=== PATIENT | male | born 1945 | race Hispanic/Latino ===

== ENCOUNTER → 2017-11-15 | Outpatient (CLI) | payer OTHER, MEDICARE ==
[~2017-11-15] MED LIST: ALLO300T2 PO; AMLO10TA2 PO; ASPI-555 PO; ATOR40TA71 PO; CARV3.1262 PO; CLON0.2T PO; FERR325T22 PO; FOLI1TAB61 PO; GLIP5TAB97 PO; LEVO25TA54 PO; LINA5TAB PO; LOSA50TA37 PO; PIOG15TA66 PO
== END | disposition home or self-care (01) ==
LOC: OIH 10:41
PROVIDERS: ATTEND Family Medicine
DX: M47.895 Other spondylosis, thoracolumbar region (principal); I51.7 Cardiomegaly; I10 Essential (primary) hypertension; Z98.890 Other specified postprocedural states
CPT/HCPCS: 71046

== ENCOUNTER 2019-04-04 13:01 | Inpatient (IN) | payer OTHER, MEDICARE ==
[~2019-04-04] VITALS: Ht 162.6 cm; Wt 62.5 kg
[~2019-04-04 13:01] MED LIST changes: -AMLO10TA2 PO; +AMLO10TA7 PO; -LOSA50TA37 PO; +LOSA50TA64 PO
[2019-04-04 13:57] LABS: EOSINOPHILS % (AUTO) 3.7 % (0.0-8.0); HEMATOCRIT 22.1 % (42-54); LYMPHOCYTES % (AUTO) 15.3 % (21.0-51.0); MEAN CORPUSCULAR HEMOGLOBIN 28.2 pg (27.0-33.0); MEAN CORPUSCULAR HGB CONC 32.7 g/dL (32.0-36.0); MEAN CORPUSCULAR VOLUME 86.1 fL (79-99); MONOCYTES % (AUTO) 9.2 % (3.0-13.0); NEUTROPHILS % (AUTO) 70.8 % (40.0-77.0); PLATELET COUNT (AUTO) 152 K/uL (130-400); RED BLOOD CELL COUNT(AUTO) 2.56 MIL/uL (4.50-6.20); RED CELL DISTRIBUTION WIDTH 16.5 % (11.0-15.5); WHITE BLOOD COUNT (AUTO) 4.4 K/uL (4.8-10.8)
[2019-04-04 14:10] LABS: INR 1.17 (0.85-1.15); PARTIAL THROMBOPLASTIN TIME 30.5 SEC (26.3-35.5); PROTHROMBIN TIME 12.2 SEC (9.6-11.6)
[2019-04-04 14:21] LABS: ABG BASE EXCESS -3.9 mmol/L (-2.0-3.0); ABG HCO3 20.8 mmol/L (21.0-28.0); ABG OXYGEN SATURATION 92.5 % (95.0-99.0); ABG PCO2 36 mmHg (35-48)
[2019-04-04] MEDS ORDERED: DEXTROSE 50%-WATER 50 ML DISP.SYRIN IV ONE (14:31)
[2019-04-04 14:33] LABS: B-TYPE NATRIURETIC PEPTIDE 3450 pg/mL (0-100)
[2019-04-04] MEDS ORDERED: FUROSEMIDE 10 MG/ML 4ML VIAL ONE (14:35)
[2019-04-04] MEDS ORDERED: FUROSEMIDE 10 MG/ML 2ML VIAL ONE (14:35)
[2019-04-04 14:40] LABS: APPEARANCE,URINE Clear (CLEAR); BILIRUBIN,URINE Negative (NEGATIVE); COLOR,URINE Yellow (YELLOW); GLUCOSE, URINE (UA) Negative (NEGATIVE); KETONES,URINE Negative (NEGATIVE); LEUKOCYTE ESTERASE ,URINE Negative (NEGATIVE); NITRATE,URINE Negative (NEGATIVE); OCCULT BLOOD,URINE Moderate (NEGATIVE); PROTEIN,URINE 300 mg/dL (NEGATIVE)
[2019-04-04 14:53] LABS: BACTERIA,URINE Rare /HPF (None Seen); MUCUS,URINE Few LPF (None Seen); SQUAMOUS EPITHELIAL CELL,UR 0-2 /HPF (0-2); WBC,URINE 0-1 /HPF (0-1)
[2019-04-04] MEDS ORDERED: NITROGLYCERIN 1GM/1 INCH PACKET TD ONE (16:31)
[2019-04-04 16:38] LABS: CREATININE 7.4 mg/dL (0.5-1.5); POTASSIUM 4.5 mmol/L (3.5-5.1)
[2019-04-04 16:42] LABS: ALBUMIN 3.8 g/dL (3.5-5.0); BILIRUBIN,TOTAL 0.5 mg/dL (0.2-1.0)
[2019-04-04] MEDS ORDERED: METOPROLOL TARTRATE 1 MG/ML 5ML VIAL IV ONE (16:54)
[2019-04-04] MEDS ORDERED: HYOSCYAMINE SULFATE 0.125 MG TAB.SUBL SL ONE (17:00)
--- NOTE | 2019-04-04 22:50 | NUR ---
PATIENT ARRIVED TO ROOM, ORIENTATED TO CALL [place] AND BED
[2019-04-04] MEDS ORDERED: CARV25TA PO (22:58)
[2019-04-04] MEDS ORDERED: TAMS-1 PO (22:58)
[2019-04-04] MEDS ORDERED: SODI325T PO (22:58)
[2019-04-04] MEDS ORDERED: LEVO50 PO (22:58)
[2019-04-04] MEDS ORDERED: FOLI1TAB15 PO (22:58)
[2019-04-04] MEDS ORDERED: TORS20TA4 PO (22:58)
[2019-04-04 23:32] VITALS: BP 186/84
[2019-04-04] MEDS: SODIUM CHLORIDE 0.9% 1000ML 1,000 ML IV SCH (23:33)
[2019-04-05] VITALS (11 sets, daily range): BP systolic 157–174; BP diastolic 69–88
--- NOTE | 2019-04-05 02:30 | NUR ---
PATIENT VOMITED UP APPROX 25 CC EMESIS. PAGE SENT OUT TO DR. WESLEY.
[2019-04-05 03:30] LABS: HEMATOCRIT 26.3 % (42-54); MEAN CORPUSCULAR HGB CONC 33.4 g/dL (32.0-36.0); MEAN CORPUSCULAR VOLUME 86.6 fL (79-99); PLATELET COUNT (AUTO) 163 K/uL (130-400); RED BLOOD CELL COUNT(AUTO) 3.03 MIL/uL (4.50-6.20); RED CELL DISTRIBUTION WIDTH 16.1 % (11.0-15.5); WHITE BLOOD COUNT (AUTO) 8.8 K/uL (4.8-10.8)
[2019-04-05 03:43] LABS: CREATININE 7.3 mg/dL (0.5-1.5); POTASSIUM 4.2 mmol/L (3.5-5.1)
[2019-04-05 03:59] LABS: FERRITIN 354 ng/mL (30-400); IRON, SERUM 24 mcg/dL (65-175)
[2019-04-05] MEDS ORDERED: ONDANSETRON HCL 4 MG/2 ML VIAL ONE (06:25)
[2019-04-05] MEDS: ONDANSETRON HCL 4 MG/2 ML VIAL IVP PRN ×2 (06:28→16:42)
[2019-04-05] MEDS: SODIUM CHLORIDE 0.9% 1000ML 1,000 ML IV SCH (06:29)
[2019-04-05] MEDS: PANTOPRAZOLE SODIUM 40 MG TABLET.DR PO SCH (08:39)
--- NOTE | 2019-04-05 15:03 | NUR ---
SITTING UP IN BED WITH HOB AT SEMI-MABRY'S POSITION. O2 AT 2L/NC. PT. C/O SOB. RR-22/MIN. O2 SAT PER SPOT CHECK-94%, INCREASED O2 TO 3LNC. CALL LIGHT WITHIN REACH. MULTIPLE FAMILY MEMBERS AT BEDSIDE.
[2019-04-05] MEDS ORDERED: FUROSEMIDE 10 MG/ML 4ML VIAL ONE (15:13)
--- NOTE | 2019-04-05 15:15 | NUR ---
cm note met with patient and states resides at home with sister, and pt states he is able to ambulate per self and bathe self, no provider, even though has been weak lately. no HH in place. [facility] dc plan i s back to home. [facility] will speak to dr powers, because he thinks he will proceed with HD. did provide information regarding provider services. pt and sister verbalize understanding and state will followup with provider services after dc. Addendum: 04/05/19 at 1520 by CHASITY RAMIREZ CM Amended: Links added.
--- NOTE | 2019-04-05 15:27 | NUR ---
NOTIFIED DR. WESLEY RE:PT.'S C/O SOB. ORDER TO STOP IVF'S RECEIVED, FLUIDS STOPPED.
--- NOTE | 2019-04-05 15:59 | NUR ---
PAGED DR. CARUSO TO INFORM RE:PT.' C/O SOB. AWAITING RESPONSE.
--- NOTE | 2019-04-05 16:05 | NUR ---
DR. CARUSO ARRIVED, CURRENTLY IN ROOM SPEAKING WITH PT. ORDERS RECEIVED. Addendum: 04/05/19 at 1825 by LETY TRINIDAD RN RN DR. CARUSO MADE AWARE BY THIS NURSE, PT. AGREEABLE TO HD.
[2019-04-05] MEDS ORDERED: LIDOCAINE HCL 1% MDV 50ML VIAL ONE (16:44)
--- NOTE | 2019-04-05 17:13 | NUR ---
TO FIELD SECRETARY VIA BED ACCOMPANIED BY Nivia RUSSELL RN.
--- NOTE | 2019-04-05 18:10 | NUR ---
RETURNED TO ROOM VIA BED ACCOMPANIED BY Nivia RUSSELL RN. PT. WITH VM AT 35%FIO2. DENIES ANY CURRENT SOB, DENIES ANY CURRENT PAIN. RIJ CATHETER IN PLACE; DRSG IN PLACE, D/I. NO CREPITUS NOTED. CALL LIGHT WITHIN REACH, VERBALIZED ABILITY TO USE. BED LOW, SIDE RAILS UP X2. FAMILY MEMBERS ALLOWED IN ROOM WITH PT. ROOM DOOR OPEN, VISIBLE FROM NURSE'S STATION.
--- NOTE | 2019-04-05 18:26 | NUR ---
NOTIFIED JACOB HAGEN JR, STAGE ELECTRICIAN HELPER RE:ORDER FOR HD FOR PT. FOR TODAY IN PLACE; VERBALIZED UNDERSTANDING.
[2019-04-05] MEDS ORDERED: HEPARIN SODIUM 5000UNIT/ML 1ML VIAL ONE (20:00)
[2019-04-05] MEDS ORDERED: SODIUM CHLORIDE 0.9% 1000ML 2,000 ML IV ONE (20:00)
[2019-04-05 22:37] LABS: CHOLESTEROL 126 mg/dL (<200); HDL CHOLESTEROL 110 mg/dL (29-71); LDL DIRECT 54 mg/dL (0-99); TRIGLYCERIDES 91 mg/dL (30-200)
[2019-04-05 23:04] LABS: % IRON SATURATION 6.3 % (30-44)
[2019-04-06 03:36] VITALS: BP 170/71
[2019-04-06] MEDS: FUROSEMIDE 10 MG/ML 4ML VIAL IVP SCH ×2 (04:09→16:07)
[2019-04-06 04:22] LABS: BASOPHILS % (AUTO) 0.3 % (0.0-5.0); EOSINOPHILS % (AUTO) 0.1 % (0.0-8.0); HEMATOCRIT 26.3 % (42-54); LYMPHOCYTES % (AUTO) 7.2 % (21.0-51.0); MEAN CORPUSCULAR HEMOGLOBIN 29.1 pg (27.0-33.0); MEAN CORPUSCULAR HGB CONC 33.7 g/dL (32.0-36.0); MEAN CORPUSCULAR VOLUME 86.1 fL (79-99); MONOCYTES % (AUTO) 9.8 % (3.0-13.0); NEUTROPHILS % (AUTO) 82.6 % (40.0-77.0); PLATELET COUNT (AUTO) 131 K/uL (130-400); RED BLOOD CELL COUNT(AUTO) 3.05 MIL/uL (4.50-6.20); RED CELL DISTRIBUTION WIDTH 15.9 % (11.0-15.5); WHITE BLOOD COUNT (AUTO) 9.1 K/uL (4.8-10.8)
[2019-04-06 04:34] LABS: ALBUMIN 3.7 g/dL (3.5-5.0); BILIRUBIN,TOTAL 0.8 mg/dL (0.2-1.0); CREATININE 5.6 mg/dL (0.5-1.5); PHOSPHORUS 5.4 mg/dL (2.5-4.9); POTASSIUM 3.8 mmol/L (3.5-5.1); TOTAL PROTEIN, SERUM 7.3 g/dL (6.0-8.3)
[2019-04-06 07:43] VITALS: BP 186/88
[2019-04-06] MEDS: PANTOPRAZOLE SODIUM 40 MG TABLET.DR PO SCH (08:44)
--- NOTE | 2019-04-06 11:43 | NUR ---
DR. Olinda WESLEY IN ROOM SPEAKING WITH PT. AND PT.'S SPOUSE AT BEDSIDE RE:PLAN OF CARE.
[2019-04-06 11:47] VITALS: BP 184/80
--- NOTE | 2019-04-06 12:41 | NUR ---
NOTIFIED DARIANA MCRAE RN, RE:ORDER FOR HD TODAY, VERBALIZED UNDERSTANDING.
--- NOTE | 2019-04-06 16:05 | NUR ---
PT. C/O SOB. O2 SAT.-94% ON 2L/NC. PLACED ON VM AT 35% FIO2 PREVIOUSLY ORDERED. CALL LIGHT WITHIN REACH. MULTIPLE FAMILY MEMBERS AT BEDSIDE.
[2019-04-06 16:10] VITALS: BP 187/89
--- NOTE | 2019-04-06 16:12 | NUR ---
RESTING IN BED WITH HOB AT [address]. PT. STATES "BREATHING BETTER."
--- NOTE | 2019-04-06 17:00 | NUR ---
RESTING IN BED. HD IN PROGRESS. PT. DENIES ANY C/O AT PRESENT TIME.
[2019-04-06 19:25] VITALS: BP 165/88
[2019-04-06 23:20] VITALS: BP 97/57
[2019-04-07 03:43] VITALS: BP 161/81
[2019-04-07] MEDS: FUROSEMIDE 10 MG/ML 4ML VIAL IVP SCH ×2 (04:04→16:44)
[2019-04-07 04:13] LABS: ALBUMIN 3.4 g/dL (3.5-5.0); BASOPHILS % (AUTO) 0.3 % (0.0-5.0); CREATININE 4.5 mg/dL (0.5-1.5); HEMATOCRIT 27.6 % (42-54); MEAN CORPUSCULAR HEMOGLOBIN 28.6 pg (27.0-33.0); MEAN CORPUSCULAR HGB CONC 33.6 g/dL (32.0-36.0); MEAN CORPUSCULAR VOLUME 85.3 fL (79-99); MONOCYTES % (AUTO) 8.9 % (3.0-13.0); NEUTROPHILS % (AUTO) 84.8 % (40.0-77.0); PLATELET COUNT (AUTO) 122 K/uL (130-400); POTASSIUM 3.8 mmol/L (3.5-5.1); RED BLOOD CELL COUNT(AUTO) 3.24 MIL/uL (4.50-6.20); RED CELL DISTRIBUTION WIDTH 16.1 % (11.0-15.5); TOTAL PROTEIN, SERUM 7.3 g/dL (6.0-8.3); WHITE BLOOD COUNT (AUTO) 9.4 K/uL (4.8-10.8)
[2019-04-07 07:00] VITALS: BP 158/82
[2019-04-07] MEDS: PANTOPRAZOLE SODIUM 40 MG TABLET.DR PO SCH (07:57)
--- NOTE | 2019-04-07 09:44 | NUR ---
DR. Tristan ALANIS IN ROOM SPEAKING WITH PT. RE:PLAN OF CARE. QUESTIONS ANSWERED BY DR. ALANIS.
[2019-04-07] MEDS ORDERED: COMPOUND IV REFRIGERATED 1 EACH IVSOLN MISC PRN (10:30)
[2019-04-07] MEDS ORDERED: EPOETIN ALFA 10,000 UNIT/ML VIAL SQ SCH (10:30)
[2019-04-07] MEDS ORDERED: COMPOUND IV MISC 1 EACH IVSOLN MISC PRN (10:30)
[2019-04-07 11:00] VITALS: BP 148/81
[2019-04-07] MEDS: IRON SUCROSE COMPLEX 100 MG in SODIUM CHLORIDE 0.9% 50 ML IV SCH (11:06)
[2019-04-07 15:00] VITALS: BP 137/85
--- NOTE | 2019-04-07 18:00 | NUR ---
HD CATHETER DRSG WITH SANGUINEOUS DRAINAGE NOTED. DRESSING REMOVED, LIGHT MANUAL PRESSURE APPLIED MAINTAINING STERILE TECHNIQUE AND NEW DRSG APPLIED. NO FURTHER BLEEDING NOTED AT PRESENT TIME. CALL LIGHT WITHIN REACH. FAMILY MEMBERS AT BEDSIDE.
[2019-04-07 19:31] VITALS: BP 164/84
[2019-04-07 23:55] VITALS: BP 164/82
[2019-04-08] MEDS: FUROSEMIDE 10 MG/ML 4ML VIAL IVP SCH ×2 (03:58→16:00)
[2019-04-08 04:25] VITALS: BP 163/80
[2019-04-08 04:43] LABS: HEMATOCRIT 27.2 % (42-54); MEAN CORPUSCULAR HEMOGLOBIN 29.1 pg (27.0-33.0); MEAN CORPUSCULAR HGB CONC 33.8 g/dL (32.0-36.0); MEAN CORPUSCULAR VOLUME 86.1 fL (79-99); PLATELET COUNT (AUTO) 111 K/uL (130-400); RED BLOOD CELL COUNT(AUTO) 3.16 MIL/uL (4.50-6.20); RED CELL DISTRIBUTION WIDTH 15.7 % (11.0-15.5)
[2019-04-08 04:50] LABS: INR 1.04 (0.85-1.15); PARTIAL THROMBOPLASTIN TIME 30.3 SEC (26.3-35.5); PROTHROMBIN TIME 10.9 SEC (9.6-11.6)
[2019-04-08 04:56] LABS: CREATININE 5.8 mg/dL (0.5-1.5); EOSINOPHILS % (MANUAL) 1 % (1-6); LYMPHOCYTES % (MANUAL) 11 % (22-44); MAN.DIFF COMMENT-IMPRESSION MANUAL DIFFERENTIAL; MONOCYTES % (MANUAL) 12 % (2-9); PHOSPHORUS 4.7 mg/dL (2.5-4.9); POTASSIUM 3.6 mmol/L (3.5-5.1); SEGMENTED NEUTROPHILS % 76 % (40-70)
[2019-04-08 07:12] VITALS: BP 163/82
[2019-04-08] MEDS: PANTOPRAZOLE SODIUM 40 MG TABLET.DR PO SCH (09:00)
[2019-04-08] MEDS ORDERED: LIDOCAINE HCL 1% MDV 50ML VIAL ONE (09:42)
[2019-04-08 10:49] VITALS: BP 169/85
[2019-04-08] MEDS: IRON SUCROSE COMPLEX 100 MG in SODIUM CHLORIDE 0.9% 50 ML IV SCH (10:53)
[2019-04-08] MEDS ORDERED: HEPARIN SODIUM 5000UNIT/ML 1ML VIAL IJ PRN ×2 (13:45)
[2019-04-08] MEDS ORDERED: 0.9% SODIUM CHLORIDE 1000 ML IV BAG IV PRN (13:45)
[2019-04-08] MEDS ORDERED: NITROGLYCERIN 0.4 MG SL TAB SL PRN (13:45)
[2019-04-08] MEDS ORDERED: SODIUM CHLORIDE 0.9% 1000ML 1,000 ML IV PRN (13:45)
[2019-04-08 14:51] VITALS: BP 171/98
--- NOTE | 2019-04-08 17:00 | NUR ---
DC PLAN TAVO SIGNED FOR DIALYSIS. 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 INFO SENT TO [facility]. PENDING LABS. MISSING HIV LAB PRIOR TO TREATMENT. ASKED LAB TO SEE IF THEY HAVE SAMPLE FROM TO HIV LAB FROM WILL FOLLOW UP. HEP PANEL AND 3RD TREATMENT STILL PENDING. Addendum: 04/08/19 at 1702 by YANNA SANCHEZ RN CM Amended: Links added.
[2019-04-08] MEDS: BISACODYL 5 MG TABLET.DR PO SCH ×3 (18:03→23:48)
[2019-04-08] MEDS: EPOETIN ALFA 10,000 UNIT/ML VIAL SQ SCH (18:03)
[2019-04-08] MEDS ORDERED: FUROSEMIDE 10 MG/ML 4ML VIAL IVP SCH (19:15)
--- NOTE | 2019-04-08 20:00 | NUR ---
PATIENT RESTING IN BED. C/O PAIN TO [facility] SITE. TYLENOL GIVEN. VEIN MAPPING DONE ON LEFT UPPER EXTREMITY. PATIENT HAS NOT HAD A BM. DULCOLAX SCHEDULED Q 4H.
[2019-04-08 20:08] VITALS: BP 151/87
[2019-04-08] MEDS: ACETAMINOPHEN 325 MG TAB PO PRN (20:24)
--- NOTE | 2019-04-08 23:30 | NUR ---
PATIENT IN AND OUT OF A-FIB. 100-115. WILL MONITOR
[2019-04-09] VITALS (7 sets, daily range): BP systolic 146–192; BP diastolic 70–100
--- NOTE | 2019-04-09 03:05 | NUR ---
PATIENT CONVERTED TO SR
[2019-04-09 04:16] LABS: BASOPHILS % (AUTO) 0.5 % (0.0-5.0); EOSINOPHILS % (AUTO) 1.7 % (0.0-8.0); HEMATOCRIT 26.7 % (42-54); LYMPHOCYTES % (AUTO) 10.5 % (21.0-51.0); MEAN CORPUSCULAR HEMOGLOBIN 28.6 pg (27.0-33.0); MEAN CORPUSCULAR HGB CONC 33.6 g/dL (32.0-36.0); MEAN CORPUSCULAR VOLUME 85.1 fL (79-99); MONOCYTES % (AUTO) 11.2 % (3.0-13.0); NEUTROPHILS % (AUTO) 76.1 % (40.0-77.0); NUCLEATED RED BLOOD CELLS 0.1 % (0.0-0.19); PLATELET COUNT (AUTO) 134 K/uL (130-400); RED BLOOD CELL COUNT(AUTO) 3.13 MIL/uL (4.50-6.20); RED CELL DISTRIBUTION WIDTH 15.8 % (11.0-15.5); WHITE BLOOD COUNT (AUTO) 7.1 K/uL (4.8-10.8)
[2019-04-09 04:36] LABS: CREATININE 4.2 mg/dL (0.5-1.5); POTASSIUM 3.7 mmol/L (3.5-5.1)
[2019-04-09] MEDS: BISACODYL 5 MG TABLET.DR PO SCH ×3 (05:08→11:25)
[2019-04-09 07:15] LABS: HEPATITIS A ANTIBODY IGM Negative (Negative); HEPATITIS B CORE IGM Negative (Negative); HEPATITIS Bs ANTIGEN SCREEN P Negative (Negative)
[2019-04-09] MEDS: PANTOPRAZOLE SODIUM 40 MG TABLET.DR PO SCH (08:26)
[2019-04-09] MEDS: IRON SUCROSE COMPLEX 100 MG in SODIUM CHLORIDE 0.9% 50 ML IV SCH (08:28)
[2019-04-09] MEDS ORDERED: FUROSEMIDE 10 MG/ML 10ML VIAL IVP SCH (09:00)
--- NOTE | 2019-04-09 09:00 | NUR ---
DR. WESLEY IS IN TO SEE PATIENT. HOME MEDS REVIEWED BY
--- NOTE | 2019-04-09 12:50 | NUR ---
DOUG WALTERS SPOKE TO JESSICA PAGAN [facility] SAID RECEIVED AND SUBMITTING. GOT HIV AND HEP FROM LAB WILL SEND TODAY. Addendum: 04/09/19 at 1251 by YANNA SANCHEZ RN CM Amended: Links added.
[2019-04-09] MEDS: ATORVASTATIN CALCIUM 40 MG TABLET PO SCH (20:50)
[2019-04-09] MEDS: CARVEDILOL 25 MG TABLET PO SCH (20:51)
[2019-04-10 04:13] VITALS: BP 156/79
[2019-04-10 04:36] LABS: HEMATOCRIT 25.9 % (42-54); MEAN CORPUSCULAR HEMOGLOBIN 28.5 pg (27.0-33.0); MEAN CORPUSCULAR HGB CONC 33.4 g/dL (32.0-36.0); MEAN CORPUSCULAR VOLUME 85.2 fL (79-99); PLATELET COUNT (AUTO) 139 K/uL (130-400); RED BLOOD CELL COUNT(AUTO) 3.04 MIL/uL (4.50-6.20); RED CELL DISTRIBUTION WIDTH 15.9 % (11.0-15.5); WHITE BLOOD COUNT (AUTO) 7.2 K/uL (4.8-10.8)
[2019-04-10 04:44] LABS: BAND NEUTROPHILS % (MANUAL) 1 % (0-2); EOSINOPHILS % (MANUAL) 4 % (1-6); LYMPHOCYTES % (MANUAL) 11 % (22-44); MAN.DIFF COMMENT-IMPRESSION MANUAL DIFFERENTIAL; MONOCYTES % (MANUAL) 8 % (2-9); PLATELET MORPHOLOGY COMMENT ADEQUATE; SEGMENTED NEUTROPHILS % 76 % (40-70)
[2019-04-10 04:49] LABS: CREATININE 5.4 mg/dL (0.5-1.5); POTASSIUM 3.3 mmol/L (3.5-5.1)
--- NOTE | 2019-04-10 05:03 | NUR ---
PATIENT RESTING IN BED. NO C/O SOB. NO C/O PAIN. HEART IN NSR.
[2019-04-10 07:37] VITALS: BP 112/90
[2019-04-10] MEDS: CARVEDILOL 25 MG TABLET PO SCH ×2 (08:11→20:54)
[2019-04-10] MEDS: TAMSULOSIN HCL 0.4 MG CAP.ER.24H PO SCH (08:58)
[2019-04-10] MEDS: LEVOTHYROXINE 50 MCG TABLET PO SCH (08:58)
[2019-04-10] MEDS: GLIPIZIDE XL 5MG TAB PO SCH (08:58)
[2019-04-10] MEDS: PANTOPRAZOLE SODIUM 40 MG TABLET.DR PO SCH (08:58)
[2019-04-10] MEDS: LINAGLIPTIN 5 MG TABLET PO SCH (08:58)
--- NOTE | 2019-04-10 11:00 | NUR ---
DR. WESLEY IS MAKING HIS ROUNDS. MADE MD AWARE THAT PT WILL GO FOR AV FISTULA PLACEMENT TOMORROW.
[2019-04-10 11:32] VITALS: BP 151/84
[2019-04-10] MEDS ORDERED: CEFAZOLIN SODIUM 1 GM VIAL IVP PRN (14:15)
[2019-04-10 15:35] VITALS: BP 141/81
[2019-04-10] MEDS: IRON SUCROSE COMPLEX 100 MG in SODIUM CHLORIDE 0.9% 50 ML IV SCH (16:26)
--- NOTE | 2019-04-10 16:55 | NUR ---
RDSCREEN - LOS X 6 Pt Dx ESRD on HD. Pt with Hemodialysis at time of visit. Pt tolerating current diet with good PO (100%) as per EMR. No report of GI distress. Rec to modify to Dialysis Diet Order. RD to provide Dialysis diet education upon follow up. Pt LBM 04/10/19. Pt monitored labs: H/H 8.7/25.9, K 3.3, BUN 64, Cr 5.4, GFR 11, Glu 159, Alb 3.4. RD to continue to monitor. Please notify as additional nutrition concerns arise. Thank you. Addendum: 04/10/19 at [address] RD Amended: Links added.
--- NOTE | 2019-04-10 16:59 | NUR ---
RD UPDATE Pt NPO pending AV Fistula Placement as per EMR. When medically feasible, Rec to advance diet as tolerated to Dialysis Diet. RD to continue to monitor.
[2019-04-10 19:17] VITALS: BP 143/70
[2019-04-10] MEDS: ATORVASTATIN CALCIUM 40 MG TABLET PO SCH (20:54)
[2019-04-10 23:40] VITALS: BP 147/68
[2019-04-11] VITALS (19 sets, daily range): BP systolic 135–172; BP diastolic 61–82
[2019-04-11 03:44] LABS: BASOPHILS % (AUTO) 0.5 % (0.0-5.0); EOSINOPHILS % (AUTO) 6.8 % (0.0-8.0); HEMATOCRIT 28.6 % (42-54); LYMPHOCYTES % (AUTO) 17.6 % (21.0-51.0); MEAN CORPUSCULAR HEMOGLOBIN 28.4 pg (27.0-33.0); MEAN CORPUSCULAR HGB CONC 33.3 g/dL (32.0-36.0); MEAN CORPUSCULAR VOLUME 85.1 fL (79-99); MONOCYTES % (AUTO) 12.7 % (3.0-13.0); NEUTROPHILS % (AUTO) 62.4 % (40.0-77.0); PLATELET COUNT (AUTO) 159 K/uL (130-400); RED BLOOD CELL COUNT(AUTO) 3.36 MIL/uL (4.50-6.20); RED CELL DISTRIBUTION WIDTH 15.5 % (11.0-15.5); WHITE BLOOD COUNT (AUTO) 6.2 K/uL (4.8-10.8)
[2019-04-11 03:57] LABS: INR 1.1 (0.85-1.15); PARTIAL THROMBOPLASTIN TIME 29.4 SEC (26.3-35.5); PROTHROMBIN TIME 11.5 SEC (9.6-11.6)
[2019-04-11 04:05] LABS: CREATININE 4.2 mg/dL (0.5-1.5); PHOSPHORUS 3.1 mg/dL (2.5-4.9); POTASSIUM 3.5 mmol/L (3.5-5.1)
[2019-04-11] MEDS: LINAGLIPTIN 5 MG TABLET PO SCH (09:00)
[2019-04-11] MEDS: GLIPIZIDE XL 5MG TAB PO SCH (09:00)
[2019-04-11] MEDS: CARVEDILOL 25 MG TABLET PO SCH ×2 (09:50→21:07)
[2019-04-11] MEDS: TAMSULOSIN HCL 0.4 MG CAP.ER.24H PO SCH (09:50)
[2019-04-11] MEDS: PANTOPRAZOLE SODIUM 40 MG TABLET.DR PO SCH (09:50)
[2019-04-11] MEDS: IRON SUCROSE COMPLEX 100 MG in SODIUM CHLORIDE 0.9% 50 ML IV SCH (09:50)
[2019-04-11] MEDS: LEVOTHYROXINE 50 MCG TABLET PO SCH (09:50)
[2019-04-11] MEDS: EPOETIN ALFA 10,000 UNIT/ML VIAL SQ SCH (09:50)
--- NOTE | 2019-04-11 09:51 | NUR ---
diabetic meds held, as per Peter, anesthesia. Patient to have hd access insertion today
--- NOTE | 2019-04-11 11:08 | NUR ---
DOUG PLAN CALLED [facility] SAID STILL NO CHAIR PENDING CORPORATE APPROVAL. Addendum: 04/11/19 at 1109 by YANNA SANCHEZ RN CM Amended: Links added.
[2019-04-11] MEDS ORDERED: BACITRACIN 50,000 UNIT VIAL ONE (17:04)
[2019-04-11] MEDS ORDERED: MIDAZOLAM HCL 1 MG/ML 2ML VIAL ONE (17:29)
[2019-04-11] MEDS ORDERED: DEXAMETHASONE SOD PHOSPHATE 10MG/ML 1ML VIAL ONE (17:29)
[2019-04-11] MEDS ORDERED: SUCCINYLCHOLINE 200MG/10ML SYR ONE (17:29)
[2019-04-11] MEDS ORDERED: LIDOCAINE PF 2% 5ML ABBOJECT ONE (17:29)
[2019-04-11] MEDS ORDERED: ONDANSETRON HCL 4 MG/2 ML VIAL ONE (17:29)
[2019-04-11] MEDS ORDERED: PROPOFOL 10 MG/ML 20ML VIAL IV ONE (17:30)
[2019-04-11] MEDS ORDERED: NEOSTIGMINE 5MG/5ML SYR IV ONE (17:30)
[2019-04-11] MEDS ORDERED: FENTANYL CITRATE PF 50 MCG/1 ML 2ML VIAL ONE (17:30)
[2019-04-11] MEDS ORDERED: GLYCOPYRROLATE 1 MG/5 ML SYRINGE ONE (17:30)
[2019-04-11] MEDS ORDERED: ROCURONIUM 10MG/1ML SYR 10 MG/ML ML ONE (17:30)
[2019-04-11] MEDS ORDERED: EPHEDRINE SULFATE 50 MG/ML AMPULE ONE (18:20)
[2019-04-11] MEDS ORDERED: NALOXONE HCL 0.4 MG/1 ML ML ONE (19:30)
--- NOTE | 2019-04-11 19:45 | NUR ---
PT WITH DIALYSIS PORT, RT CHEST AREA. Addendum: 04/11/19 at 2014 by AN DOCKERY RN RN Amended: Links added.
[2019-04-11] MEDS ORDERED: HYDRALAZINE HCL 20 MG/ML VIAL ONE (20:11)
[2019-04-11] MEDS ORDERED: TRAMADOL HCL 50 MG TABLET PO PRN ×2 (20:15)
--- NOTE | 2019-04-11 20:45 | NUR ---
PT STABLE, DENIES PAIN. AV FISTULA WITH GOOD BRUIT AND THRILL. REPORT GIVEN KARLA. Addendum: 04/11/19 at 2045 by AN DOCKERY RN RN Amended: Links added.
[2019-04-11] MEDS: ATORVASTATIN CALCIUM 40 MG TABLET PO SCH (21:07)
[2019-04-12 03:53] VITALS: BP 141/64
[2019-04-12 03:57] LABS: HEMATOCRIT 27.9 % (42-54); MEAN CORPUSCULAR HEMOGLOBIN 28.6 pg (27.0-33.0); MEAN CORPUSCULAR HGB CONC 32.8 g/dL (32.0-36.0); MEAN CORPUSCULAR VOLUME 87.3 fL (79-99); PLATELET COUNT (AUTO) 190 K/uL (130-400); RED CELL DISTRIBUTION WIDTH 15.7 % (11.0-15.5); WHITE BLOOD COUNT (AUTO) 6.7 K/uL (4.8-10.8)
[2019-04-12 04:22] LABS: CREATININE 5.5 mg/dL (0.5-1.5); POTASSIUM 4.2 mmol/L (3.5-5.1)
[2019-04-12 07:13] VITALS: BP 150/67
[2019-04-12 11:08] VITALS: BP 117/57
[2019-04-12] MEDS: GLIPIZIDE XL 5MG TAB PO SCH (12:07)
[2019-04-12] MEDS: LEVOTHYROXINE 50 MCG TABLET PO SCH (12:08)
[2019-04-12] MEDS: PANTOPRAZOLE SODIUM 40 MG TABLET.DR PO SCH (12:08)
[2019-04-12] MEDS: CARVEDILOL 25 MG TABLET PO SCH ×2 (12:09→21:11)
[2019-04-12] MEDS: IRON SUCROSE COMPLEX 100 MG in SODIUM CHLORIDE 0.9% 50 ML IV SCH (12:10)
[2019-04-12] MEDS: LINAGLIPTIN 5 MG TABLET PO SCH (12:10)
[2019-04-12] MEDS: TAMSULOSIN HCL 0.4 MG CAP.ER.24H PO SCH (12:21)
--- NOTE | 2019-04-12 12:35 | NUR ---
RD NOTIFICATION/ FOLLOW UP DX: ACUTE ON CHRONIC RENAL FAILURE, ANEMIA. DIET: CLEAR LIQUIDS. PO 100% AND HAS GOOD APPETITE PER PT. LBM: 04/11. SKIN INTACT, NO EDEMA. PT TOLERATING CLEAR LIQUIDS. NO NAUSEA, VOMITING OR DIARRHEA BU-MYPM-VWOS. RD PROVIDED RENAL DIALYSIS NUTRITION AND DIET EDUCATION. PT CLAIMS TO COOKS FOR HIMSELF, SISTER OR NIECE COOKS FOR HIM. HIS NIECE WILL BE TAKING CARE OF HIM ONCE D/C. PT IS COMPLIANT WITH DIABETES MEDICATION AND DIET PER PT, HE HAS BEEN ABLE TO CONTROL BG LEVELS, A1C 6. RD RECOMMENDS TO CONTINUE CURRENT DIET, ADVANCE DIET TOLERATED WHEN MEDICALLY FEASIBLE TO FULL LIQUIDS. LASTLY, ADVANCE TO RENAL DIALYSIS, 75GMCCD. RD PROVIDED RENAL DIALYSIS DIET EDUCATION. PT VERBALIZED UNDERSTANDING AND ASKED A LOT OF QUESTIONS. RD ENCOURAGED PT TO REACH OUT IF HIM OR HIS NIECE HAD ANY OTHER QUESTIONS, COMMENTS OR CONCERNS. FAMILY NOT PRESENT DURING TIME OF EDUCATION. RD WILL CONTINUE TO MONITOR AND FOLLOW UP NEEDED. THANK YOU. Addendum: 04/12/19 at [address] Amended: Links added.
--- NOTE | 2019-04-12 12:36 | NUR ---
DIET EDUCATION ANGY PROVIDED RENAL DIALYSIS DIET EDUCATION. PT VERBALIZED UNDERSTANDING AND ASKED A LOT OF QUESTIONS. RD ENCOURAGED PT TO REACH OUT IF HIM OR HIS NIECE HAD ANY OTHER QUESTIONS, COMMENTS OR CONCERNS. FAMILY NOT PRESENT DURING TIME OF EDUCATION. Addendum: 04/12/19 at [address] Amended: Links added.
[2019-04-12 14:55] VITALS: BP 123/61
--- NOTE | 2019-04-12 17:59 | NUR ---
DOUG PLAN CALLED [facility] AGA[facility] TODAY MULTIPLE TIMES STILL NO CHAIR. SAID THEY WILL GET WITH CORPORATE TO SEE WHAT HAPPENED. PARTLY IS THE PERSON THAT DOES REFERRALS IS OUT SICK. Addendum: 04/12/19 at 1800 by YANNA SANCHEZ RN CM Amended: Links added.
[2019-04-12 20:07] VITALS: BP 126/54
[2019-04-12] MEDS ORDERED: APIXABAN 5 MG TABLET PO SCH (21:00)
[2019-04-12] MEDS: ATORVASTATIN CALCIUM 40 MG TABLET PO SCH (21:11)
[2019-04-12 23:57] VITALS: BP 146/58
[2019-04-13] MEDS: ACETAMINOPHEN 325 MG TAB PO PRN (01:56)
[2019-04-13 04:16] VITALS: BP 150/62
[2019-04-13 07:16] VITALS: BP 145/61
[2019-04-13] MEDS: LEVOTHYROXINE 50 MCG TABLET PO SCH (07:20)
[2019-04-13] MEDS: IRON SUCROSE COMPLEX 100 MG in SODIUM CHLORIDE 0.9% 50 ML IV SCH (07:21)
[2019-04-13] MEDS: CARVEDILOL 25 MG TABLET PO SCH ×2 (07:21→20:31)
[2019-04-13] MEDS: TAMSULOSIN HCL 0.4 MG CAP.ER.24H PO SCH (07:21)
[2019-04-13] MEDS: LINAGLIPTIN 5 MG TABLET PO SCH (07:21)
[2019-04-13] MEDS: PANTOPRAZOLE SODIUM 40 MG TABLET.DR PO SCH (07:21)
[2019-04-13] MEDS: GLIPIZIDE XL 5MG TAB PO SCH (07:21)
--- NOTE | 2019-04-13 08:00 | NUR ---
ASSESSMENT PT IS AAOX4 DENIES CP DENIES SOB DENIES NV NO COMPLAINTS AT THIS TIME. AM MEDS GIVEN, TOLERATED WELL. LEFT ARM AV SURGICAL SITE CLEAN DRY AND INTACT. + THRILL + BRUIT. FAMILY IS AT BEDSIDE, CALL LIGHT WITHIN REACH.
--- NOTE | 2019-04-13 10:45 | NUR ---
DR Anderson ALANIS ROUNDED STATES PT IS STILL PENDING CHAIR AT [facility].
[2019-04-13 11:17] VITALS: BP 138/50
[2019-04-13 14:56] VITALS: BP 138/54
--- NOTE | 2019-04-13 17:15 | NUR ---
STATUS AMBULATING IN HALLS, NO COMPLAINTS. BACK TO ROOM. FAMILY AT BEDSIDE.
--- NOTE | 2019-04-13 19:00 | NUR ---
PUSCA ROUNDED ON PATIENT.NO NEW ORDERS.
[2019-04-13 20:27] VITALS: BP 154/69
[2019-04-13] MEDS: ATORVASTATIN CALCIUM 40 MG TABLET PO SCH (20:30)
[2019-04-13] MEDS: BISACODYL 5 MG TABLET.DR PO PRN (20:41)
[2019-04-13 23:56] VITALS: BP 149/66
[2019-04-14] MEDS: ACETAMINOPHEN 325 MG TAB PO PRN (01:02)
--- NOTE | 2019-04-14 03:00 | NUR ---
PATIENT RESTING IN BED. C/O NERVE PAIN TWO NIGHTS IN A ROW. TYLENOL GIVEN WITH RELIEF. WILL TALK TO DR ABOUT NEUROPATHY PAIN. L ARM HD ACCESS WITH THRILL. AMBULATES INDEPENDENTLY. STEADY GAIT
[2019-04-14 04:01] VITALS: BP 155/65
[2019-04-14 07:09] VITALS: BP 151/66
[2019-04-14] MEDS: LINAGLIPTIN 5 MG TABLET PO SCH (07:39)
[2019-04-14] MEDS: PANTOPRAZOLE SODIUM 40 MG TABLET.DR PO SCH (07:39)
[2019-04-14] MEDS: TAMSULOSIN HCL 0.4 MG CAP.ER.24H PO SCH (07:40)
[2019-04-14] MEDS: LEVOTHYROXINE 50 MCG TABLET PO SCH (07:40)
[2019-04-14] MEDS: GLIPIZIDE XL 5MG TAB PO SCH (07:40)
[2019-04-14] MEDS: CARVEDILOL 25 MG TABLET PO SCH ×2 (07:40→20:10)
[2019-04-14] MEDS: IRON SUCROSE COMPLEX 100 MG in SODIUM CHLORIDE 0.9% 50 ML IV SCH (07:40)
[2019-04-14] MEDS: BISACODYL 5 MG TABLET.DR PO PRN (07:46)
--- NOTE | 2019-04-14 08:40 | NUR ---
ASSESSMENT PT IS AAOX4 DENIES CP DENIES SOB DENIES NV NO COMPLAINTS. SITTING UP IN BED, CALL LIGHT WITHIN REACH.
[2019-04-14 11:05] VITALS: BP 131/55
--- NOTE | 2019-04-14 12:45 | NUR ---
DR Lorrie ALANIS ROUNDED /LYRICA ORDER PATIENT STATES HE DOESN'T WANT THE LYRICA NOW, HIS LEGS FEEL FINE. WILL RETURN UNOPENED LYRICA CAPS.
[2019-04-14] MEDS ORDERED: PREGABALIN 25 MG CAP PO ONE (13:30)
[2019-04-14 15:01] VITALS: BP 136/62
--- NOTE | 2019-04-14 18:20 | NUR ---
STATUS SITTING UPRIGHT IN BED. NO COMPLAINTS, DENIES PAIN. CALL LIGHT WITHIN REACH.
[2019-04-14] MEDS ORDERED: PREGABALIN 25 MG CAP ONE ×2 (19:53→22:25)
[2019-04-14] MEDS: ATORVASTATIN CALCIUM 40 MG TABLET PO SCH (20:10)
[2019-04-14 20:54] VITALS: BP 110/60
[2019-04-15 00:04] VITALS: BP 156/68
--- NOTE | 2019-04-15 01:30 | NUR ---
PATIENT RESTING IN BED. THRILL PRESENT TO KRISTA. NO C/O SOB. PATIENT DID C/O OF RLE NERVE PAIN. 3/3 NIGHTS. LYRICA GIVEN WITH NIGHT MEDS AND TYLENOL GIVEN NOW. WILL CONTINUE TO MONITOR.
[2019-04-15] MEDS: ACETAMINOPHEN 325 MG TAB PO PRN (01:43)
[2019-04-15 04:09] VITALS: BP 150/70
[2019-04-15 07:00] VITALS: BP_SYST 114; BP_SYST 158; BP_DIAS 66; BP_DIAS 69
--- NOTE | 2019-04-15 07:45 | NUR ---
ASSESSMENT PT A&OX3, CALM COOPERATIVE AND DOES NOT APPEAR TO BE IN ANY DISTRESS NOR ANY NEURO DEFICITS PRESENT. PT DENIES PAIN, SOB, NAUSEA. LAVA WITH BRUIT/THRILL PRESENT, PERMACATH TO RSC, SITE DRY AND INTACT. PT RESTING COMFORTABLY, PENDING HEMODIALYSIS, CALL LIGHT WITHIN REACH, FAMILY AT BEDSIDE.
[2019-04-15] MEDS: TAMSULOSIN HCL 0.4 MG CAP.ER.24H PO SCH (08:00)
[2019-04-15] MEDS: LEVOTHYROXINE 50 MCG TABLET PO SCH (09:00)
[2019-04-15] MEDS: GLIPIZIDE XL 5MG TAB PO SCH (09:00)
[2019-04-15] MEDS: LINAGLIPTIN 5 MG TABLET PO SCH (09:00)
[2019-04-15] MEDS: PANTOPRAZOLE SODIUM 40 MG TABLET.DR PO SCH (09:00)
[2019-04-15] MEDS: IRON SUCROSE COMPLEX 100 MG in SODIUM CHLORIDE 0.9% 50 ML IV SCH (09:00)
[2019-04-15] MEDS: CARVEDILOL 25 MG TABLET PO SCH (09:00)
--- NOTE | 2019-04-15 10:13 | NUR ---
DOUG WALTERS SPOKE TO JOZEF THIS MORNING. APOLOGIZED SAID THERE HAD BEEN AN ERROR ON THEIR PART. PERSON THAT DOES IT NORMALLY WAS OUT SICK. INFO GOT MISPLACED. THEY ARE WORKING ON IT SHOULD KNOW SOMETHING BY 1200 TODAY. Addendum: 04/15/19 at 1014 by YANNA SANCHEZ RN CM Amended: Links added.
[2019-04-15 11:00] VITALS: BP 148/73
--- NOTE | 2019-04-15 13:41 | NUR ---
DOUG PLAN [facility] CALLED BACK SAID PATIENT APPROVED. CHAIR IS TTS 230 PM LET NURSE KNOW. Addendum: 04/15/19 at 1342 by YANNA SANCHEZ RN CM Amended: Links added.
[2019-04-15 15:00] VITALS: BP 155/73
--- NOTE | 2019-04-15 16:00 | NUR ---
DISCHARGE INSTRUCTIONS GIVEN, PIV REMOVED AND INTACT, DISCHARGED HOME TO FAMILY VEHICLE VIA WHEELCHAIR.
== END 2019-04-15 16:26 | disposition home or self-care (01) | DRG 673 ==
LOC: EDH 13:01 → OBSVTOIN 16:31 → EDHIP 16:31 → 2AH 22:32
PROVIDERS: ADMIT Family Medicine; ATTEND Family Medicine
PROC: 30233N1 Transfusion of Nonautologous Red Blood Cells into Peripheral Vein, Percutaneous Approach (ICD-10-PCS; 2019-04-04)
PROC: 5A1D70Z Performance of Urinary Filtration, Intermittent, Less than 6 Hours Per Day (ICD-10-PCS; 2019-04-05)
PROC: 02HV33Z Insertion of Infusion Device into Superior Vena Cava, Percutaneous Approach (ICD-10-PCS; 2019-04-05)
PROC: 0JH63XZ Insertion of Tunneled Vascular Access Device into Chest Subcutaneous Tissue and Fascia, Percutaneous Approach (ICD-10-PCS; principal; 2019-04-08)
PROC: 02H633Z Insertion of Infusion Device into Right Atrium, Percutaneous Approach (ICD-10-PCS; 2019-04-08)
PROC: 5A1D70Z Performance of Urinary Filtration, Intermittent, Less than 6 Hours Per Day (ICD-10-PCS; 2019-04-08)
PROC: 5A1D70Z Performance of Urinary Filtration, Intermittent, Less than 6 Hours Per Day (ICD-10-PCS; 2019-04-09)
PROC: 5A1D70Z Performance of Urinary Filtration, Intermittent, Less than 6 Hours Per Day (ICD-10-PCS; 2019-04-10)
PROC: 03180ZD Bypass Left Brachial Artery to Upper Arm Vein, Open Approach (ICD-10-PCS; 2019-04-11)
PROC: 5A1D70Z Performance of Urinary Filtration, Intermittent, Less than 6 Hours Per Day (ICD-10-PCS; 2019-04-12)
PROC: 5A1D70Z Performance of Urinary Filtration, Intermittent, Less than 6 Hours Per Day (ICD-10-PCS; 2019-04-15)
DX: N17.9 Acute kidney failure, unspecified (principal); I50.43 Acute on chronic combined systolic (congestive) and diastolic (congestive) heart failure; I13.2 Hypertensive heart and chronic kidney disease with heart failure and with stage 5 chronic kidney disease, or end stage renal disease; E87.2 Acidosis; N18.6 End stage renal disease; D64.9 Anemia, unspecified; E11.22 Type 2 diabetes mellitus with diabetic chronic kidney disease; E11.51 Type 2 diabetes mellitus with diabetic peripheral angiopathy without gangrene; E78.5 Hyperlipidemia, unspecified; E11.40 Type 2 diabetes mellitus with diabetic neuropathy, unspecified; K21.9 Gastro-esophageal reflux disease without esophagitis; I25.10 Atherosclerotic heart disease of native coronary artery without angina pectoris; Z99.2 Dependence on renal dialysis; Z83.3 Family history of diabetes mellitus; Z95.1 Presence of aortocoronary bypass graft
CPT/HCPCS: 36415; 36430; 36556; 36581; 36600; 71045; 77001; 80048; 80053; 80061; 80074; 81001; 82435; 82550; 82728; 82803; 82947; 82948; 83036; 83540; 83550; 83605; 83880; 84100; 84132; 84295; 84484; 85018; 85025; 85027; 85610; 85730; 86701; 86850; 86900; 86901; 86922; 87390; 90935; 93005; 93306; 93971; 99291; C1750; C1752; G0378; J0330; J0360; J0690; J0885; J1100; J1644; J1756; J1940; J2001; J2250; J2310; J2405; J2704; J2710; J3010; J3490; J7030; J7040; J7070; P9016

== ENCOUNTER 2021-01-02 08:59 | Observation (INO) | payer OTHER, MEDICARE ==
[~2021-01-02 08:59] MED LIST changes: -ALLO300T2 PO; +AMLO-258 PO; -AMLO10TA7 PO; -ASPI-555 PO; +ASPI-556 PO; +CARV25TA PO; -CARV3.1262 PO; +FOLI1TAB15 PO; -FOLI1TAB61 PO; -LEVO25TA54 PO; +LEVO50 PO; -PIOG15TA66 PO; +SODI325T PO; +TAMS-1 PO
[2021-01-02 09:10] VITALS: BP 169/81
[2021-01-02] MEDS ORDERED: METOPROLOL TARTRATE 1 MG/ML 5ML VIAL IV SCH (09:15)
[2021-01-02] MEDS ORDERED: MORPHINE 4 MG SYG IVP SCH (09:15)
[2021-01-02] MEDS ORDERED: PANT40TA54 PO (09:25)
[2021-01-02] MEDS ORDERED: FOLI0.8T22 PO (09:25)
[2021-01-02] MEDS ORDERED: EMLA30C TP (09:25)
[2021-01-02] MEDS ORDERED: ROPI0.2527 PO (09:25)
[2021-01-02] MEDS ORDERED: SEVE800T7 PO (09:25)
[2021-01-02 09:26] LABS: BASOPHILS % (AUTO) 0.4 % (0.0-5.0); EOSINOPHILS % (AUTO) 1.9 % (0.0-8.0); HEMATOCRIT 37.8 % (42-54); LYMPHOCYTES % (AUTO) 23.3 % (21.0-51.0); MEAN CORPUSCULAR HEMOGLOBIN 29.3 pg (27.0-33.0); MEAN CORPUSCULAR HGB CONC 31.7 g/dL (32.0-36.0); MEAN CORPUSCULAR VOLUME 92.4 fL (79-99); MONOCYTES % (AUTO) 8.6 % (3.0-13.0); NEUTROPHILS % (AUTO) 65.4 % (40.0-77.0); PLATELET COUNT (AUTO) 175 K/uL (130-400); RED BLOOD CELL COUNT(AUTO) 4.09 MIL/uL (4.50-6.20); RED CELL DISTRIBUTION WIDTH 13.6 % (11.0-15.5); WHITE BLOOD COUNT (AUTO) 6.9 K/uL (4.8-10.8)
[2021-01-02 09:37] LABS: CARBON DIOXIDE 31 mmol/L (21-32); CHLORIDE 96 mmol/L (101-111); CREATININE 4.6 mg/dL (0.5-1.5); GLOMERULAR FILTR. RATE CALC 13 mL/min (>60); GLUCOSE,RANDOM 123 mg/dL (70-105); SODIUM SERUM 136 mmol/L (136-145); UREA NITROGEN, BLOOD 20 mg/dL (7-18)
[2021-01-02 09:38] LABS: INR 1.05 (0.85-1.15); PROTHROMBIN TIME 11.4 SEC (9.6-11.6)
[2021-01-02 10:10] LABS: ALANINE AMINOTRANSFERASE 19 U/L (12-78); ALBUMIN 4.3 g/dL (3.5-5.0); ASPARTATE AMINOTRANSFERASE 14 U/L (10-37); BILIRUBIN,TOTAL 0.8 mg/dL (0.2-1.0); CREATINE KINASE, TOTAL 199 U/L (21-232); MYOGLOBIN 620 ng/mL (10-92); TOTAL PROTEIN, SERUM 8.3 g/dL (6.0-8.3); TROPONIN I < 0.04 ng/mL (0.00-0.06)
[2021-01-02 11:00] VITALS: BP 165/85
[2021-01-02] MEDS ORDERED: ACETAMINOPHEN 650 MG SUPPOSITORY RC PRN (13:00)
[2021-01-02] MEDS ORDERED: CLONIDINE HCL 0.1 MG TABLET PO PRN (13:00)
[2021-01-02] MEDS ORDERED: MORPHINE 2 MG SYG IVP PRN (13:00)
[2021-01-02] MEDS ORDERED: ONDANSETRON 4MG INJ IVP PRN (13:00)
[2021-01-02] MEDS ORDERED: NITROGLYCERIN 50MG/D5W 250ML 250 BOT IV PRN (13:00)
[2021-01-02] MEDS ORDERED: HYDRALAZINE 20MG/ML VIAL IV PRN (13:00)
[2021-01-02] MEDS ORDERED: ACETAMINOPHEN 325 MG TAB PO PRN (13:00)
[2021-01-02] MEDS ORDERED: IOHEXOL-350 75 ML VIAL IV ONE (13:24)
[2021-01-02 14:08] VITALS: BP 168/85
[2021-01-02 15:43] VITALS: BP 159/60
[2021-01-02 16:44] VITALS: BP 154/65
[2021-01-02 20:00] VITALS: BP 130/66
[2021-01-03 00:09] VITALS: BP 121/43
[2021-01-03 03:54] VITALS: BP 133/67
[2021-01-03 05:12] LABS: BASOPHILS % (AUTO) 0.5 % (0.0-5.0); HEMATOCRIT 32.7 % (42-54); LYMPHOCYTES % (AUTO) 20.4 % (21.0-51.0); MEAN CORPUSCULAR HGB CONC 32.7 g/dL (32.0-36.0); MEAN CORPUSCULAR VOLUME 91.6 fL (79-99); MONOCYTES % (AUTO) 8.7 % (3.0-13.0); NEUTROPHILS % (AUTO) 66.9 % (40.0-77.0); PLATELET COUNT (AUTO) 161 K/uL (130-400); RED BLOOD CELL COUNT(AUTO) 3.57 MIL/uL (4.50-6.20); RED CELL DISTRIBUTION WIDTH 13.6 % (11.0-15.5); WHITE BLOOD COUNT (AUTO) 6.7 K/uL (4.8-10.8)
[2021-01-03 05:25] LABS: INR 1.05 (0.85-1.15); PROTHROMBIN TIME 11.4 SEC (9.6-11.6)
[2021-01-03 05:36] LABS: CREATININE 7.1 mg/dL (0.5-1.5); POTASSIUM 5.6 mmol/L (3.5-5.1)
[2021-01-03 08:00] VITALS: BP 155/75
[2021-01-03] MEDS ORDERED: SEVELAMER HCL 800 MG TABLET PO SCH (08:00)
[2021-01-03] MEDS ORDERED: ASPIRIN 81 MG EC TAB PO SCH (08:00)
[2021-01-03] MEDS ORDERED: KAYEXALATE 15GM/60ML PO SCH (08:15)
[2021-01-03] MEDS ORDERED: LINAGLIPTIN 5 MG TABLET PO SCH (09:00)
[2021-01-03] MEDS ORDERED: AMLODIPINE 5 MG TAB PO SCH (09:00)
[2021-01-03] MEDS ORDERED: GLIPIZIDE XL 5MG TAB PO SCH (09:00)
[2021-01-03] MEDS ORDERED: LOSARTAN 50 MG TABLET PO SCH (09:00)
[2021-01-03] MEDS ORDERED: CARVEDILOL 25 MG TABLET PO SCH (09:00)
[2021-01-03] MEDS ORDERED: Vitamin B Complex/Vit C/Folic Acid PO SCH (09:00)
[2021-01-03] MEDS ORDERED: CLONIDINE HCL 0.2 MG TABLET PO SCH (09:00)
[2021-01-03] MEDS ORDERED: PANTOPRAZOLE 40 MG TAB DR PO SCH (09:00)
[2021-01-03] MEDS ORDERED: FOLIC ACID 1 MG TABLET PO SCH (09:00)
[2021-01-03] MEDS ORDERED: ROPINIROLE HCL 0.25 MG TABLET PO SCH (09:00)
[2021-01-03] MEDS ORDERED: LEVOTHYROXINE 50 MCG TABLET PO SCH (09:00)
[2021-01-03 12:06] VITALS: BP 162/79
[2021-01-03] MEDS ORDERED: ATORVASTATIN 40 MG TABLET PO SCH (21:00)
[2021-01-05] MEDS ORDERED: LIDOCAINE/PRILOCAINE CREAM 30 GM TUBE TP SCH (09:00)
== END 2021-01-03 11:10 | disposition home or self-care (01) ==
LOC: EDH 08:59 → EDHIP 12:54 → 4BH 16:30
PROVIDERS: ADMIT Internal Medicine Critical Care Medicine; ATTEND Internal Medicine Critical Care Medicine
DX: I16.0 Hypertensive urgency (principal); R07.89 Other chest pain; I12.0 Hypertensive chronic kidney disease with stage 5 chronic kidney disease or end stage renal disease; E11.22 Type 2 diabetes mellitus with diabetic chronic kidney disease; N18.6 End stage renal disease; G25.81 Restless legs syndrome; K21.9 Gastro-esophageal reflux disease without esophagitis; I25.10 Atherosclerotic heart disease of native coronary artery without angina pectoris; E78.5 Hyperlipidemia, unspecified; Z99.2 Dependence on renal dialysis; Z95.1 Presence of aortocoronary bypass graft; Z79.82 Long term (current) use of aspirin; Z79.84 Long term (current) use of oral hypoglycemic drugs; Z79.899 Other long term (current) drug therapy
CPT/HCPCS: 36415 ×2; 71045; 71275; 80048; 80053; 82550; 82948 ×3; 83874; 84484 ×3; 85025 ×2; 85378 ×2; 85610 ×2; 93005; 96374; 96375; 99285; G0378 ×22; J2270; J3490; Q9967

== ENCOUNTER 2021-10-28 01:37 | Emergency (ER) | payer OTHER, MEDICARE ==
[~2021-10-28] VITALS: Ht 160 cm; Wt 74.8 kg
[~2021-10-28 01:37] MED LIST changes: +EMLA30C TP; -FERR325T22 PO; +FOLI0.8T22 PO; +PANT40TA54 PO; +ROPI0.2527 PO; +SEVE800T7 PO; -SODI325T PO; -TAMS-1 PO
[2021-10-28 02:26] LABS: BASOPHILS % (AUTO) 0.4 % (0.0-5.0); EOSINOPHILS % (AUTO) 2.1 % (0.0-8.0); HEMATOCRIT 30.2 % (42-54); LYMPHOCYTES % (AUTO) 23.5 % (21.0-51.0); MEAN CORPUSCULAR HEMOGLOBIN 30.5 pg (27.0-33.0); MEAN CORPUSCULAR HGB CONC 33.1 g/dL (32.0-36.0); MEAN CORPUSCULAR VOLUME 92.1 fL (79-99); MONOCYTES % (AUTO) 8.7 % (3.0-13.0); NEUTROPHILS % (AUTO) 64.9 % (40.0-77.0); PLATELET COUNT (AUTO) 175 K/uL (130-400); RED BLOOD CELL COUNT(AUTO) 3.28 MIL/uL (4.50-6.20); RED CELL DISTRIBUTION WIDTH 14.2 % (11.0-15.5)
[2021-10-28] MEDS ORDERED: ASPIRIN 325MG TAB PO ONE (02:30)
[2021-10-28] MEDS ORDERED: NITROGLYCERIN 1GM OINT 1 INCH/1GM TD ONE (02:30)
[2021-10-28] MEDS ORDERED: FAMOTIDINE 20MG VIAL IV ONE (02:30)
[2021-10-28 02:40] LABS: APPEARANCE,URINE TURBID (CLEAR); BILIRUBIN,URINE NEGATIVE (NEGATIVE); COLOR,URINE RED (YELLOW); GLUCOSE, URINE (UA) NEGATIVE (NEGATIVE); KETONES,URINE 15 mg/dL (NEGATIVE); LEUKOCYTE ESTERASE ,URINE MODERATE (NEGATIVE); NITRATE,URINE POSITIVE (NEGATIVE); OCCULT BLOOD,URINE LARGE (NEGATIVE); PROTEIN,URINE >=300 mg/dL (NEGATIVE)
[2021-10-28 02:43] LABS: BILIRUBIN,TOTAL 0.4 mg/dL (0.2-1.0); POTASSIUM 3.9 mmol/L (3.5-5.1); TOTAL PROTEIN, SERUM 7.3 g/dL (6.0-8.3)
[2021-10-28 02:47] LABS: CREATININE 9.3 mg/dL (0.5-1.5)
[2021-10-28 02:48] LABS: B-TYPE NATRIURETIC PEPTIDE 92 pg/mL (0-100)
[2021-10-28 02:50] LABS: BACTERIA,URINE Rare /HPF (None Seen); RBC,URINE TNTC /HPF (0-1); WBC,URINE 0-1 /HPF (0-1)
[2021-10-28 02:52] LABS: SQUAMOUS EPITHELIAL CELL,UR Rare /HPF (0-2)
[2021-10-28] MEDS ORDERED: SIMETHICONE 80 MG TAB.CHEW PO ONE (03:00)
[2021-10-28 06:16] VITALS: BP 160/66
[2021-10-28] MEDS ORDERED: FAMO-136 PO (06:37)
== END 2021-10-28 06:48 | disposition home or self-care (01) ==
LOC: EDH 01:37
DX: K31.9 Disease of stomach and duodenum, unspecified (principal); I12.0 Hypertensive chronic kidney disease with stage 5 chronic kidney disease or end stage renal disease; N18.6 End stage renal disease; E11.22 Type 2 diabetes mellitus with diabetic chronic kidney disease; E78.00 Pure hypercholesterolemia, unspecified; R10.13 Epigastric pain; R31.9 Hematuria, unspecified; N13.30 Unspecified hydronephrosis; Z79.82 Long term (current) use of aspirin; Z79.84 Long term (current) use of oral hypoglycemic drugs; Z79.899 Other long term (current) drug therapy; Z95.1 Presence of aortocoronary bypass graft; Z99.2 Dependence on renal dialysis
CPT/HCPCS: 36415; 71045; 74176; 80053; 81001; 82550; 83690; 83880; 84484 ×2; 85025; 87088; 93005 ×2; 96374; 99285; J3490

== ENCOUNTER → 2023-05-29 | Outpatient (CLI) | payer OTHER, MEDICARE ==
[~2023-05-29] MED LIST changes: +FAMO-136 PO
== END | disposition home or self-care (01) ==
LOC: RAH 11:14
PROVIDERS: ATTEND Urology
DX: N26.1 Atrophy of kidney (terminal) (principal); N18.9 Chronic kidney disease, unspecified
CPT/HCPCS: 76770

== ENCOUNTER 2024-11-02 04:21 | Emergency (ER) | payer OTHER, MEDICARE ==
[~2024-11-02] VITALS: Ht 162.6 cm; Wt 73.5 kg
[2024-11-02] MEDS: OXYmetazolone HCL SPRAY 15 ML BOTTLE EN SCH (04:33)
--- NOTE | 2024-11-02 04:45 | NUR ---
NOSE CLIP WITH AFRIN DID NOT WORK, DR GONZALEZ INSERTED RAPID RHINO 7.5CM TO RIGHT NARE. BLEEDING HAS STOPPED.
--- NOTE | 2024-11-02 05:05 | NUR ---
PATIENT EPISODE, PATIENT WAS COMPLAINING OF RIGHT NARE PAIN, RIGHT HEADACHE, THEN SUDDEN DIAPHORESIS, LOW PULSE, LOW BP, NOTIFED MD, LASTED APPROXIMATLY 3MIN, BLOOD SUGAR 190. FAMILY AT BEDSIDE.
[2024-11-02 05:09] LABS: BASOPHILS # (AUTO) 0.04 K/uL (0.00-0.20); BASOPHILS % (AUTO) 0.6 % (0.0-5.0); EOSINOPHILS # (AUTO) 0.14 K/uL (0.00-0.70); EOSINOPHILS % (AUTO) 1.9 % (0.0-8.0); HEMATOCRIT 31.5 % (42-54); IMMATURE GRANULOCYTE ABSOLUTE 0.04 K/uL (0-1); LYMPHOCYTES # (AUTO) 1.2 K/uL (1.0-4.8); LYMPHOCYTES % (AUTO) 16.4 % (21.0-51.0); MEAN CORPUSCULAR HEMOGLOBIN 31.2 pg (27.0-33.0); MEAN CORPUSCULAR HGB CONC 32.4 g/dL (32.0-36.0); MEAN CORPUSCULAR VOLUME 96.3 fL (79-99); MONOCYTES # (AUTO) 0.5 K/uL (0.1-1.0); MONOCYTES % (AUTO) 6.7 % (3.0-13.0); NEUTROPHILS # (AUTO) 5.3 K/uL (1.8-7.7); NEUTROPHILS % (AUTO) 73.8 % (40.0-77.0); PLATELET COUNT (AUTO) 172 K/uL (130-400); RED BLOOD CELL COUNT(AUTO) 3.27 MIL/uL (4.50-6.20); RED CELL DISTRIBUTION WIDTH 13.8 % (11.0-15.5); WHITE BLOOD COUNT (AUTO) 7.2 K/uL (4.8-10.8)
--- NOTE | 2024-11-02 05:15 | ERN ---
General Chief Complaint: Nosebleed Stated Complaint: NOSEBLEED ONSET 0300 Time Seen by MD: 04:22 Source: patient History of Present Illness Initial Comments Patient is a 79-year-old male who comes in with a nosebleed. It just started spontaneously. He does not note any other symptoms aside from his nosebleed. It does tract to the back of his throat and he has hematemesis. Past medical history is diabetes hypertension coronary artery disease (he is status post CABG several years ago). He completed a dialysis session today. Timing/Duration: 1-3 hours Allergies: Coded Allergies: No Known Allergies (Unverified Allergy, Unknown, 07/23/14) Home Meds Active Scripts Famotidine (Pepcid) 20 Mg Tablet, 20 MG PO DAILY for 10 Days, #10 TAB 0 Refills Prov:SARAI GRIFFIN MD 10/28/21 Clonidine HCl (Clonidine HCl) 0.2 Mg Tablet, 0.2 MG PO TID, #90 TAB Prov:WILLIAM OSUNA MD 03/20/17 Reported Medications Ropinirole HCl (Requip) 0.25 Mg Tablet, 0.25 MG PO DAILY, TAB 01/02/21 Sevelamer Carbonate (Renvela) 800 Mg Tablet, 800 MG PO TIDMEALS, TAB 01/02/21 Folic Acid/Vitamin B Comp W-C (Shereen-Americo Tablet) 0.8 Mg Tablet, 0.8 MG PO DAILY, TAB 01/02/21 Pantoprazole Sodium (Pantoprazole Sodium) 40 Mg Tablet.dr, 40 MG PO DAILY, TAB 01/02/21 Lidocaine/Prilocaine (Emla Cream) 1 Appl/Gm Crm, 1 APPL TP QTUTHSA for 30 MINUTES PRIOR TO DIALYSIS , APPL 01/02/21 Carvedilol (Carvedilol) 25 Mg Tablet, 25 MG PO BID, TAB 04/04/19 Folic Acid (Folic Acid) 1 Mg Tablet, 1 MG PO DAILY, TAB 04/04/19 Levothyroxine Sodium (Levothroid/Synthroid) 50 Mcg Tab, 50 MCG PO DAILY, TAB 04/04/19 Atorvastatin Calcium (Atorvastatin Calcium) 40 Mg Tablet, 40 MG PO HS, TAB 03/18/17 Linagliptin (Tradjenta) 5 Mg Tablet, 5 MG PO DAILY, TAB 07/23/14 Glipizide (Glipizide Xl) 5 Mg Tab.er.24, 5 MG PO DAILY 07/23/14 Aspirin (Aspir 81) 81 Mg Tablet.dr, 81 MG PO DAILYBKFST, TAB 07/23/14 Losartan Potassium (Losartan Potassium) 50 Mg Tablet, 100 MG PO DAILY, TAB 07/23/14 Amlodipine Besylate (Amlodipine Besylate) 10 Mg Tablet, 10 MG PO DAILY, TAB 07/23/14 Past Medical History Past Medical History: Diabetes-Type II, High Cholesterol, Heart Disease, Hypertension, Hypothyroid, Renal Failure Past Surgical History: CABG Family History Family History: DM, HTN Constitutional: (-) chills, (-) diaphoresis, (-) fever, (-) malaise, (-) weakness, (-) other documentation EENTM: (-) eye pain, (-) blurred vision, (-) tearing, (-) double vision, (-) ear pain, (-) ear discharge, (-) nose pain, (-) nose congestion, (-) throat pain, (-) Throat swelling, (-) mouth pain, (-) tooth pain, (-) mouth swelling, (-) other documentation Respiratory: (-) cough, (-) orthopnea, (-) short of breath, (-) stridor, (-) wheezing, (-) other documentation Cardiovascular: (-) chest pain, (-) edema, (-) palpitations, (-) syncope, (-) dyspnea on exertion, (-) other documentation Musculoskeletal: (-) Neck pain, (-) back pain, (-) Flank Pain, (-) joint pain, (-) joint swelling, (-) muscle pain, (-) muscle stiffness, (-) gout, (-) other documentation Neuro: (-) altered mental status, (-) headache, (-) syncope, (-) paralysis, (-) numbness, (-) seizure, (-) pre-existing deficit, (-) tremors, (-) weakness, (-) dizziness, (-) slurred speech, (-) vertigo, (-) other documentation Physical Exam General Appearance: (+) mild distress Orientation: (+) alert Head/Face Trauma: No Eye: bilateral eye normal inspection, bilateral eye PERRL, bilateral eye EOMI Ear, Nose, Throat: (+) hearing grossly normal, (+) normal ENT inspection Neck: (+) normal inspection, (+) supple, (+) no JVD Respiratory: (+) chest non-tender, (+) lungs clear, (+) well ventilated Heart: (+) regular, (+) no gallop Vascular: (+) no edema, (+) normal peripheral pulse Gastrointestinal: (+) soft, (+) non-tender, (+) bowel sound present Results Laboratory and Microbiology Lab and Micro Result Laboratory Tests Test 11/02/24 05:07 11/02/24 05:11 White Blood Count 7.2 K/uL (4.8-10.8) Red Blood Count 3.27 MIL/uL (4.50-6.20) L Hemoglobin 10.2 g/dL (14.0-18.0) L Hematocrit 31.5 % (42-54) L Mean Corpuscular Volume 96.3 fL (79-99) Mean Corpuscular Hemoglobin 31.2 pg (27.0-33.0) Mean Corpuscular Hemoglobin Concent 32.4 g/dL (32.0-36.0) Red Cell Distribution Width 13.8 % (11.0-15.5) Platelet Count 172 K/uL (130-400) Mean Platelet Volume 9.5 fL (7.5-10.5) Immature Granulocyte % (Auto) 0.6 % (0-1) Neutrophils (%) (Auto) 73.8 % (40.0-77.0) Lymphocytes (%) (Auto) 16.4 % (21.0-51.0) L Monocytes (%) (Auto) 6.7 % (3.0-13.0) Eosinophils (%) (Auto) 1.9 % (0.0-8.0) Basophils (%) (Auto) 0.6 % (0.0-5.0) Neutrophils # (Auto) 5.3 K/uL (1.8-7.7) Lymphocytes # (Auto) 1.2 K/uL (1.0-4.8) Monocytes # (Auto) 0.5 K/uL (0.1-1.0) Eosinophils # (Auto) 0.14 K/uL (0.00-0.70) Basophils # (Auto) 0.04 K/uL (0.00-0.20) Absolute Immature Granulocyte (auto 0.04 K/uL (0-1) Nucleated Red Blood Cells 0.0 % (0.0-0.19) Prothrombin Time 10.4 SEC (9.6-11.6) Prothromb Time International Ratio 0.98 (0.85-1.15) Activated Partial Thromboplast Time 26.1 SEC (26.3-35.5) L Sodium Level 137 mmol/L (136-145) Potassium Level 3.5 mmol/L (3.5-5.1) Chloride Level 98 mmol/L (101-111) L Carbon Dioxide Level 30 mmol/L (21-32) Blood Urea Nitrogen 36 mg/dL (7-18) H Creatinine 7.2 mg/dL (0.5-1.3) H Glomerular Filtration Rate Calc 7 mL/min (>90) Random Glucose 178 mg/dL (70-105) H Total Calcium 7.4 mg/dL (8.5-10.1) L Troponin I High Sensitivity 24 ng/L (4-75) B-Type Natriuretic Peptide 485 pg/mL (0-100) H Whole Blood Glucose 190 MG/DL (70-110) H MDM We placed a rhino rocket into the patient's right nose. Short time later he experienced a vasovagal response with decrease in his heart rate in his blood pressure. In addition patient had diaphoresis. Monitor may show normal sinus rhythm or it may show atrial fibrillation I am not sure. The patient is maintaining a good blood pressure so I will not give him any adenosine or diltiazem or epinephrine now. We will do a full cardiac workup I will also check coags as the patient completed a dialysis session, granted it was through a fistula rather than a catheter it still with nose bleeding we need to check coags. Coags are normal. Patient's troponin is normal patient's EKGs normal patient's BNP is elevated, but as BNP is cleared through the kidneys this could be factitiously elevated from his renal failure. I will get a chest x-ray to rule out CHF. Patient's chest x-ray does not show CHF. Patient feels better except now he has a headache and wonders if it is from the rhino rocket, which is possible. I will give the patient some Tylenol and a little fluid. We will try and take the rhino rocket out. We will have send the patient home with a rhino rocket in place. ED Course Orders Procedure Category Date Status Time Oxymetazolone Hcl PHA 11/02/24 In Process [place] (Afrin) 04:30 Cbc With Differential LAB 11/02/24 Complete 04:51 Prothrombin Time With LAB 11/02/24 Complete INR 05:16 B-Type Natriuretic LAB 11/02/24 Complete Peptide 05:16 12 Lead Ekg Tracing- EKG 11/02/24 Logged Technical 05:16 Troponin I High LAB 11/02/24 Complete Sensitivity 05:16 Partial LAB 11/02/24 Complete Thromboplastin Time 05:16 Basic Metabolic Panel LAB 11/02/24 Complete 05:16 Bedside Glucose CPOE 11/02/24 Transmitted Fingerstick 05:29 Chest 1vw RAD 11/02/24 Taken 06:11 Acetaminophen 650mg PHA 11/02/24 Complete Elixir (Tylenol 650m 07:00 Current Medications Medications (Trade) Dose Ordered Sig/Claudia Route PRN Reason Start Time Stop Time Status Last Admin Dose Admin Acetaminophen (TYLenol 650MG ELIXIR) 650 mg ONCE ONCE PEG 11/02/24 07:00 11/02/24 07:04 DC Oxymetazoline HCl (AFrin) 1 sprays ONCE EN 11/02/24 04:30 12/02/24 04:29 11/02/24 04:33 Vital Signs Date Time Temp Pulse Resp B/P (MAP) Pulse Ox O2 Delivery O2 Flow Rate FiO2 11/02/24 06:09 77 18 160/79 98 Room Air* 0 11/02/24 05:37 68 18 119/79 98 Room Air* 0 11/02/24 05:16 66 18 128/57 98 Room Air* 0 11/02/24 05:05 56 18 79/37 98 Room Air* 0 11/02/24 04:30 98.8 90 13 112/73 97 Room Air 0 DX & DISP Disposition: Discharge Departure Impression: Primary Impression: Epistaxis not due to trauma Condition: Stable Referrals: BRUNO WESLEY MD (PCP) IVETT GONZALEZ MD Nov 02, 2024 05:15
[2024-11-02 05:37] LABS: CREATININE 7.2 mg/dL (0.5-1.3); POTASSIUM 3.5 mmol/L (3.5-5.1)
[2024-11-02 05:39] LABS: INR 0.98 (0.85-1.15); PROTHROMBIN TIME 10.4 SEC (9.6-11.6)
[2024-11-02 05:40] LABS: PARTIAL THROMBOPLASTIN TIME 26.1 SEC (26.3-35.5)
[2024-11-02] MEDS: acetaMINOPHEN 650 MG/20.3 ML UDCUP PEG ONE (07:43)
--- NOTE | 2024-11-02 07:48 | HMCIMG ---
CHEST 1VW HISTORY: Elevated blood pressure COMPARISON: 10/28/2021 FINDINGS: A frontal projection of the chest was obtained. Prominent interstitial markings are seen with possible superimposed infiltrates. Right basilar linear atelectasis changes are seen. Poststernotomy changes are seen. The heart is enlarged. Degenerative changes of the thoracolumbar spine are present. Left axillary stent is seen. Aortic calcifications are seen. IMPRESSION: 1. Prominent interstitial markings are seen with possible superimposed infiltrates. Right basilar linear atelectasis.
[2024-11-02 07:51] VITALS: BP 151/65; PULSE 78; RESP 18; TEMP 98.1; O2SAT 98
--- NOTE | 2024-11-02 13:11 | EKG ---
[facility] Test Date: 2024-11-02 Test Time: 05:24:49 Pat Name: FAWAD PATEL Department: ED Room: Gender: M [place] Supervisor: [phone] : [id number] Requested By: IVETT GONZALEZ Order Number: [id number] Reading MD: Adali Roberts Measurements Intervals Preble Rate: 71 P: 67 TX: 248 QRS: 12 QRSD: 116 T: 142 QT: 441 QTc: 479 Interpretive Statements Sinus rhythm Prolonged TX interval Nonspecific intraventricular conduction delay Abnrm T, consider ischemia, anterolateral lds Compared to ECG 10/28/2021 03:49:38 First degree AV block now present Intraventricular conduction delay now present Possible ischemia now present Myocardial infarct finding no longer present Electronically Signed On 11-02-2024 17:04:12 CDT by Adali Roberts Please click the below link to view image of tracing.
== END 2024-11-02 08:00 | disposition home or self-care (01) ==
LOC: EDH 04:21
DX: R04.0 Epistaxis (principal); E03.9 Hypothyroidism, unspecified; E11.9 Type 2 diabetes mellitus without complications; E78.00 Pure hypercholesterolemia, unspecified; I11.9 Hypertensive heart disease without heart failure; I25.10 Atherosclerotic heart disease of native coronary artery without angina pectoris; Z79.84 Long term (current) use of oral hypoglycemic drugs; Z79.890 Hormone replacement therapy; Z79.899 Other long term (current) drug therapy; Z95.1 Presence of aortocoronary bypass graft
CPT/HCPCS: 30901; 36415; 71045; 80048; 82948; 83880; 84484; 85025; 85610; 85730; 93005; 99284; 99285

== ENCOUNTER → 2025-04-08 | Outpatient (CLI) | payer OTHER, MEDICAID ==
--- NOTE | 2025-04-08 18:08 | HMCIMG ---
EXAM: CT Abdomen and Pelvis Without Intravenous Contrast CLINICAL HISTORY: 79 year old male with cyst of kidney, acquired, atherosclerotic aorta, and coronary artery disease. TECHNIQUE: Axial computed tomography images of the abdomen and pelvis without intravenous contrast. Dose reduction technique was used including one or more of the following: automated exposure control, adjustment of mA and kV according to patient size, and/or iterative reconstruction. CONTRAST: NONE COMPARISON: CT Abdomen And Pelvis 10/28/21 FINDINGS: LUNG BASES: No basilar airspace consolidation or pleural effusion. LIVER: Unremarkable. GALLBLADDER AND BILE DUCTS: Unremarkable. No calcified stone. No ductal dilation. PANCREAS: Unremarkable. SPLEEN: Unremarkable. ADRENAL GLANDS: Unremarkable. KIDNEYS, URETERS, AND BLADDER: Bilateral Perinephric fat stranding. Thickening of the bladder chavez, question cystitis. STOMACH AND BOWEL: No obstruction. No wall thickening. No CT evidence of colitis or acute diverticulitis. APPENDIX: No CT evidence for appendicitis. PERITONEUM: No free fluid. No free air. LYMPH NODES: No lymphadenopathy. REPRODUCTIVE: Unremarkable as visualized. VASCULATURE: Atherosclerotic aorta. Atherosclerotic calcifications of the arteries. Coronary artery disease. ABDOMINAL WALL AND SOFT TISSUES: Bilateral inguinal hernias containing mesenteric fat only. BONES: No fracture or suspicious osseous abnormality. IMPRESSION: 1. Thickening of the bladder chavez, question cystitis. 2. Bilateral inguinal hernias containing mesenteric fat only. 3. Similar to prior CT Abdomen And Pelvis 10/28/21 /[facility]
== END | disposition home or self-care (01) ==
LOC: RAH 10:49
PROVIDERS: ATTEND Family Medicine
DX: K40.20 Bilateral inguinal hernia, without obstruction or gangrene, not specified as recurrent (principal); N28.1 Cyst of kidney, acquired; I70.0 Atherosclerosis of aorta; N32.89 Other specified disorders of bladder
CPT/HCPCS: 74176